=== PATIENT | female | born 1980 | race Caucasian/White ===

== ENCOUNTER 2019-05-02 10:00 | Emergency (ER) | payer MEDICAID ==
[~2019-05-02] VITALS: Ht 172.7 cm; Wt 130.0 kg
[2019-05-02 10:02] VITALS: Ht 172.7 cm; Wt 130.0 kg
[2019-05-02] MEDS ORDERED: HCTZ25 MG PO (10:04)
[2019-05-02] MEDS ORDERED: AMITRIPTYLINE100 MG PO (10:04)
[2019-05-02] MEDS ORDERED: COZAAR100 MG PO (10:05)
[2019-05-02] MEDS ORDERED: BUSPAR5 MG (10:05)
[2019-05-02] MEDS ORDERED: ULTRAM50 MG PO (10:06)
[2019-05-02] MEDS ORDERED: TYLENOL ARTHRI650 MG (10:07)
[2019-05-02] MEDS ORDERED: HYDROCODON-ACE1 EAC7 PO (10:07)
[2019-05-02] MEDS ORDERED: SKELAXIN800 MG PO (14:12)
[2019-05-02] MEDS ORDERED: IBUPROFEN800 MG PO (14:13)
[2019-05-02] MEDS ORDERED: VOLTAREN100 GM TOPICAL (14:14)
[2019-05-02 14:35] VITALS: BP 152/80
== END 2019-05-02 14:36 | disposition home or self-care (01) ==
LOC: D.ER 10:00
DX: M54.5 Low back pain (principal); I10 Essential (primary) hypertension